=== PATIENT | female | born 1950 | race Caucasian/White ===

== ENCOUNTER 2017-06-27 12:52 | Emergency (ER) | payer MEDICARE, OTHER ==
--- NOTE | 2017-06-27 13:57 | EDM.PDOC ---
ED HPI GENERAL MEDICAL PROBLEM - General Chief Complaint: Cardiovascular Problem Stated Complaint: felt heart fluttering, feel faint, SOB Time Seen by Provider: 06/27/17 13:03 Source of Information: Reports: Patient, Family History Limitations: Reports: No Limitations - History of Present Illness INITIAL COMMENTS - FREE TEXT/NARRATIVE: Patient with long history of intermittent Afib with RVR came to ER after experiencing an episode of her usual symptoms. Patient says that she felt the irregular rapid pulse, and had dizziness/was not feeling well for about one hour. Some SOB/feeling woozy. No chest pain. No GI//Neuro/Resp/HEENT changes otherwise on ROS. She converted on her own while in their vehicle as they came to the ER. She has had an extensive workup over the past 10 years for this, including care at [facility]. Recently started on Rythmol and Xarelto by [place] [facility]. Has been told she may need an ablation due to increasing frequency of episodes. Has been having them monthly since last fall, and also twice in the last week. Patient has required cardioversion at times in past when she did not convert on medication. No specific triggers identified. Minimal past medical history otherwise. Staying locally watching grandchildren but not from this area. Currently feels fine and has no complaints. - Related Data Allergies Allergy/AdvReac Type Severity Reaction Status Date / Time No Known Allergies Allergy Verified 06/27/17 13:49 Home Meds: Home Meds Escitalopram [Lexapro] 10 mg PO DAILY 06/27/17 [History] Esomeprazole Magnesium [Nexium] 20 mg PO DAILY 06/27/17 [History] Magnesium 250 mg PO DAILY 06/27/17 [History] Propafenone HCl 150 mg PO TID 06/27/17 [History] Rivaroxaban [Xarelto] 20 mg PO BEDTIME 06/27/17 [History] Past Medical History HEENT History: Reports: Impaired Vision Cardiovascular History: Reports: Afib, Arrhythmia Gastrointestinal History: Reports: GERD Psychiatric History: Reports: Anxiety Social & Family History - Tobacco Use Smoking Status *Q: Never Smoker Second Hand Smoke Exposure: No - Caffeine Use Caffeine Use: Reports: None - Recreational Drug Use Recreational Drug Use: No ED ROS GENERAL - Review of Systems Review Of Systems: ROS reveals no pertinent complaints other than HPI. (Patient currently feels well and is without complaints.) ED EXAM, GENERAL - Physical Exam Exam: See Below Exam Limited By: No Limitations General Appearance: Alert, WD/WN, No Apparent Distress Eye Exam: Bilateral Eye: EOMI, PERRL Ears: Normal External Exam, Normal Canal Nose: Normal Inspection Throat/Mouth: Normal Inspection, Normal Lips, Normal Teeth, Normal Gums, Normal Oropharynx, Normal Voice, No Airway Compromise Head: Atraumatic, Normocephalic Neck: Normal Inspection, Supple, Non-Tender, Full Range of Motion, Carotid Bruit Respiratory/Chest: No Respiratory Distress, Lungs Clear, Normal Breath Sounds, No Accessory Muscle Use Cardiovascular: Normal Peripheral Pulses, Regular Rate, Rhythm, No Edema, No Murmur Peripheral Pulses: 2+: Radial (L), Radial (R), Dorsalis Pedis (L), Dorsalis Pedis (R) GI/Abdominal: Normal Bowel Sounds, Soft, Non-Tender, No Distention (Female) Exam: Deferred Rectal (Female) Exam: Deferred Back Exam: Normal Inspection Extremities: Normal Inspection, Normal Range of Motion, No Pedal Edema, Normal Capillary Refill Neurological: Alert, Oriented, Normal Cognition, Normal Gait, No Motor/Sensory Deficits Psychiatric: Normal Affect, Normal Mood Skin Exam: Warm, Dry, Intact, Normal Color Course - Vital Signs Last Recorded V/S: Last Vital Signs Temp 35.9 C 06/27/17 13:00 Pulse 71 06/27/17 13:19 Resp 19 06/27/17 13:19 BP 101/70 06/27/17 13:19 Pulse Ox 97 06/27/17 13:19 - Re-Assessments/Exams Free Text/Narrative Re-Assessment/Exam: Patient placed on radiation monitor in ER and it showed normal sinus rhythm with no acute ST changes with rate of 70. She continued to have no complaints. Neither nor patient desired further medical workup given that she was back to baseline and has been through this many times before. Unremarkable exam. Vital signs stable. Observed in ER for an hour, no changes noted. They continued to desire no additional workup and were comfortable with being discharged. Precautions reviewed prior to discharge. Patient plans to call [facility] on Thursday to verify how they wish her to take her Rhythmol as she is not certain if it the same as prescribed by [facility]. She is also uncertain if she really wants to be on Xarelto and wishes to get [facility]'s opinion. Departure - Departure Time of Disposition: 13:56 Disposition: Home, Self-Care 01 Condition: Good Clinical Impression: Tachycardia, paroxysmal Afib Qualifiers: Atrial fibrillation type: paroxysmal Qualified Code(s): I48.0 - Paroxysmal atrial fibrillation Forms: ED Department Discharge Additional Instructions: Call [facility] on Thursday and ask about the dosing for the new medication as well as need for continued anticoagulation. Continue your current plan otherwise for now. Follow up with us or at the nearest ER if you suddenly have worsening problems again.
== END 2017-06-27 14:00 | disposition home or self-care (01) ==
LOC: LL.ED 12:52
DX: I47.9 Paroxysmal tachycardia, unspecified (principal); I48.91 Unspecified atrial fibrillation; K21.9 Gastro-esophageal reflux disease without esophagitis; Z79.01 Long term (current) use of anticoagulants; Z79.899 Other long term (current) drug therapy
CPT/HCPCS: 99283; 99284